=== PATIENT | female | born 1995 | race Caucasian/White ===

== ENCOUNTER 2025-06-26 15:18 | Inpatient (IN) | payer OTHER ==
[2025-06-26] MEDS ORDERED: Nalbuphine 10 MG/1 ML Vial IVPUSH PRN (16:23)
[2025-06-26] MEDS ORDERED: Ondansetron 4 MG/2 ML SDV IVPUSH PRN (16:23)
[2025-06-26] MEDS ORDERED: Oxytocin/0.9 % Sodium Chloride 30 UNIT/500 ML BAG IV SCH (16:30)
[2025-06-26 17:21] LABS: BASOPHILS ABSOLUTE AUTO 0.1 K/mm3 (0.0-0.2); BASOPHILS PERCENT AUTO 0.5 % (0.0-1.0); EOSINOPHILS ABSOLUTE AUTO 0.1 K/mm3 (0.0-0.4); EOSINOPHILS PERCENT AUTO 0.6 % (0.0-6.0); IMMATURE GRAN ABSOLUTE AUTO 0.05 K/mm3 (0.00-0.05); IMMATURE GRAN PERCENT AUTO 0.5 % (0.0-0.4); LYMPHOCYTES ABSOLUTE AUTO 1.5 K/mm3 (1.0-4.8); LYMPHOCYTES PERCENT AUTO 14.7 % (24.0-44.0); MEAN PLATELET VOLUME 10.8 fl (9.4-12.3); MONOCYTES ABSOLUTE AUTO 0.6 K/mm3 (0.0-0.8); MONOCYTES PERCENT AUTO 5.4 % (0.0-8.0); NEUTROPHILS ABSOLUTE AUTO 8.2 K/mm3 (1.8-7.7); NEUTROPHILS PERCENT AUTO 78.3 % (41.0-71.0); NRBC ABSOLUTE 0.00 (0.00-0.02); NRBC PERCENT 0.0 % (0.0-0.2); PLATELET COUNT,PLT 273 K/mm3 (150-400); RED BLOOD CELL COUNT 4.39 M/mm3 (4.10-5.30); WHITE BLOOD CELL COUNT,WBC 10.50 K/mm3 (3.9-11.3)
[2025-06-26] MEDS: Misoprostol 25 MCG (1/4 of 100 MCG) Tab VAG ONE (17:24)
[2025-06-26 17:52] LABS: CREATININE,URINE RAND 80.5 mg/dL (30.0-125.0); PROTEIN CREATININE RATIO,URINE 108.1 mg/g (0-149); PROTEIN,URINE RANDOM 8.7 mg/dL (0.0-11.8)
[2025-06-26 18:02] LABS: ALANINE AMINOTRANSFERASE,ALT 54.0 U/L (14-59); ASPARTATE AMNIOTRANSFERASE,AST 39.0 U/L (15-37); BLOOD UREA NITROGEN,BUN 9.0 mg/dL (7-18); CREATININE 0.5 mg/dL (0.55-1.02); EST CRCL DRUG DOSING (CG) 128.94 mL/min; ESTIMATED GFR 129.0 mL/min (>60); LACTATE DEHYDROGENASE,LDH 190.0 U/L (81-234)
[2025-06-26] MEDS: Misoprostol 25 MCG (1/4 of 100 MCG) Tab VAG PRN (21:19)
[2025-06-27] MEDS: Lactated Ringers 1,000 ML IV SCH (01:57)
[2025-06-27] MEDS ORDERED: Bupivacaine/fentaNYL/NS 100 ML Bag EPIDUR PRN (07:52)
[2025-06-27] MEDS ORDERED: ePHEDrine 50 MG/ML SDV IVPUSH PRN (07:52)
[2025-06-27] MEDS ORDERED: fentaNYL 100 MCG/2 ML SDV EPIDUR PRN (07:52)
[2025-06-27] MEDS ORDERED: diphenhydrAMINE 50 MG/ML SDV IVPUSH PRN (07:52)
[2025-06-27] MEDS: Oxytocin/0.9 % Sodium Chloride 30 UNIT/500 ML BAG IV SCH (15:20)
[2025-06-27] MEDS: Witch Hazel Medicated Pads 40/Jar TOP PRN (20:04)
[2025-06-27] MEDS: Benzocaine/Menthol 20%-0.5% Spray 78 GM Cannister TOP PRN (20:05)
== END 2025-06-29 13:15 | disposition home or self-care (01) | DRG 807 ==
LOC: JD.OB 15:18 → OBSVTOIN 06-27 15:18 → JD.OB 06-27 15:19
PROVIDERS: ADMIT Obstetrics & Gynecology; ATTEND Obstetrics & Gynecology
PROC: 10E0XZZ Delivery of Products of Conception, External Approach (ICD-10-PCS; principal; 2025-06-27)
PROC: 0U7C7DJ Dilation of Cervix with Intraluminal Device, Temporary, Via Natural or Artificial Opening (ICD-10-PCS; principal; 2025-06-27)
PROC: 0KQM0ZZ Repair Perineum Muscle, Open Approach (ICD-10-PCS; principal; 2025-06-27)
DX: O13.4 Gestational [pregnancy-induced] hypertension without significant proteinuria, complicating childbirth (principal); Z37.0 Single live birth; O70.1 Second degree perineal laceration during delivery; Z3A.38 38 weeks gestation of pregnancy; Z88.8 Allergy status to other drugs, medicaments and biological substances; Z79.899 Other long term (current) drug therapy
CPT/HCPCS: 36415; 59025; 59200; 59409; 82565; 82570; 83615; 84156; 84450; 84460; 84520; 84550; 85025; 86592; 86850; 86900; 86901; A9270-GY; C1726; J7120; J7999